=== PATIENT | female | born 1945 | race Caucasian/White ===

== ENCOUNTER 2020-10-15 19:35 | Emergency (ER) | payer OTHER ==
[2020-10-15 20:56] LABS: HEMOGLOBIN 14.2 gm/dl (12.3-15.3); RED BLOOD COUNT 4.83 M/UL (4.00-5.10); WHITE BLOOD COUNT 13.1 K/UL (4.5-11.0)
[2020-10-15 21:14] LABS: BUN/CREATININE RATIO 13 (0-10)
[2020-10-15] MEDS ORDERED: FLAGYL500 MG PO (22:23)
[2020-10-15] MEDS ORDERED: LEVOFLOXACIN750 MG PO (22:23)
[2020-10-15] MEDS ORDERED: BENTYL 20MG TAB20 MG PO (22:23)
[2020-10-15] MEDS ORDERED: ZOFRAN ODT 4 MG4 MG PO (22:24)
== END 2020-10-15 23:06 | disposition home or self-care (01) ==
LOC: ER1 19:35
PROVIDERS: Physician Assistant
DX: K57.32 Diverticulitis of large intestine without perforation or abscess without bleeding (principal); I25.2 Old myocardial infarction; E78.5 Hyperlipidemia, unspecified; I10 Essential (primary) hypertension; Z90.710 Acquired absence of both cervix and uterus; Z90.49 Acquired absence of other specified parts of digestive tract; Z88.0 Allergy status to penicillin; Z88.2 Allergy status to sulfonamides; Z88.5 Allergy status to narcotic agent; Z88.8 Allergy status to other drugs, medicaments and biological substances
CPT/HCPCS: 80053; 81001; 83690; 85025; 87086; 96374; 96375; 99284; J1885; J2405; J7030; Q9967